=== PATIENT | male | born 2000 | race Caucasian/White ===

== ENCOUNTER 2021-09-05 22:52 | Inpatient (IN) | payer BC ==
[2021-09-06 00:44] VITALS: BMI 31.5
[2021-09-06] MEDS ORDERED: Sodium Chloride 0.9% 1,000 ML IV SCH (01:00)
[2021-09-06] MEDS ORDERED: Ondansetron PF 4 MG/2 ML Vial IVP PRN (01:49)
[2021-09-06] MEDS ORDERED: Ondansetron ODT 4 MG TAB PO PRN (01:49)
[2021-09-06] MEDS ORDERED: Morphine 4 MG/ML VIAL SLOW IVP PRN (02:05)
[2021-09-06 04:05] LABS: #Basophils 0.1 10x3/uL (0.0-0.2); #Eosinphils 0.2 10x3/uL (0.0-0.5); #Monocytes 0.5 10x3/uL (0.0-1.1); #Neutrophils 4.2 10x3/uL (1.5-8.4); %Basophils 1.5 % (0.0-2.0); %Eosinophils 2.2 % (0.0-6.0); %Lymphocytes 29.5 % (18.0-47.0); %Monocytes 6.3 % (0.0-10.0); %Neutrophils 56.9 % (40.0-75.0); Mean Corpuscular HGB CONC 31.3 g/dL (32.0-36.0); Mean Corpuscular Hemoglobin 20.2 pg (27.0-33.0); Mean Platelet Volume 11.2 fl (7.4-10.4); Platelet Count 262 10x3/uL (150-450); RBC Distribution Width 17.2 % (11.5-14.5); Red Blood Cell (RBC) Count 5.45 10x6/uL (4.32-5.72); White Blood Cell (WBC) Count 7.3 10x3/uL (3.5-10.5)
[2021-09-06 04:17] LABS: ALT (SGPT) 1010 U/L (8-55); AST (SGOT) 677 U/L (5-34); Albumin 4.2 g/dL (3.5-5.0); Alkaline Phosphatase 85 U/L (40-110); Anion Gap 12 mmol/L (10-20); BUN (Urea Nitrogen) 10 mg/dL (8.9-20.6); Bilirubin, Total 6.1 mg/dL (0.2-1.2); Calc. Creatinine Clearance 216 mL/min (70-130); Carbon Dioxide 24 mmol/L (22-29); Chloride 107 mmol/L (98-107); Globulin 2.1 g/dL (2.4-3.5); Glucose 98 mg/dL (70-105); Magnesium 2.2 mg/dL (1.6-2.6); Protein, Total 6.3 g/dL (6.0-8.3); Sodium 139 mmol/L (136-145)
[2021-09-06] MEDS: D5 LR w/20 mEq KCL 1,000 ML IV SCH ×4 (07:43→18:17)
[2021-09-06 09:32] LABS: ALT (SGPT) 1066 U/L (8-55); AST (SGOT) 622 U/L (5-34); Albumin 4.1 g/dL (3.5-5.0); Alkaline Phosphatase 89 U/L (40-110); Bilirubin, Direct 4.3 mg/dL (0.1-0.3); Bilirubin, Total 5.9 mg/dL (0.2-1.2); Protein, Total 6.4 g/dL (6.0-8.3)
[2021-09-06 10:17] LABS: SARS-CoV-2 NAA Rapid Test Not Detected (NotDetected)
[2021-09-06] MEDS ORDERED: cefOXitin 2 GM in Sodium Chloride 0.9% 100 ML IVPB SCH (15:45)
[2021-09-06] MEDS ORDERED: Enoxaparin Sodium 40 MG/0.4 ML SYRINGE SC SCH (21:00)
[2021-09-07] MEDS: D5 LR w/20 mEq KCL 1,000 ML IV SCH ×3 (02:10→21:47)
[2021-09-07 04:54] LABS: ALT (SGPT) 782 U/L (8-55); AST (SGOT) 275 U/L (5-34); Albumin 3.9 g/dL (3.5-5.0); Alkaline Phosphatase 91 U/L (40-110); Anion Gap 9 mmol/L (10-20); BUN (Urea Nitrogen) 7 mg/dL (8.9-20.6); Bilirubin, Total 1.9 mg/dL (0.2-1.2); Calc. Creatinine Clearance 222 mL/min (70-130); Carbon Dioxide 26 mmol/L (22-29); Chloride 107 mmol/L (98-107); Glucose 109 mg/dL (70-105); Potassium 4.3 mmol/L (3.5-5.1); Protein, Total 5.9 g/dL (6.0-8.3); Sodium 138 mmol/L (136-145)
[2021-09-07 04:55] LABS: Prothrombin Time 10.8 sec (9.5-12.1)
[2021-09-07 05:03] LABS: Platelet Count 218 10x3/uL (150-450)
[2021-09-07 05:05] LABS: #Basophils 0.1 10x3/uL (0.0-0.2); #Eosinphils 0.2 10x3/uL (0.0-0.5); #Monocytes 0.5 10x3/uL (0.0-1.1); #Neutrophils 3.2 10x3/uL (1.5-8.4); %Basophils 1.6 % (0.0-2.0); %Eosinophils 2.9 % (0.0-6.0); %Lymphocytes 31.2 % (18.0-47.0); %Monocytes 8.8 % (0.0-10.0); %Neutrophils 52.2 % (40.0-75.0); Hemoglobin 10.5 g/dL (13.5-17.5); Mean Corpuscular HGB CONC 31.2 g/dL (32.0-36.0); Mean Corpuscular Volume 64.3 fl (81.2-95.1); Mean Platelet Volume 10.5 fl (7.4-10.4); RBC Distribution Width 16.7 % (11.5-14.5); Red Blood Cell (RBC) Count 5.24 10x6/uL (4.32-5.72); White Blood Cell (WBC) Count 6.2 10x3/uL (3.5-10.5)
[2021-09-07 05:48] LABS: Platelet Morphology Comment Appears Adequate; RBC Morphology Normal
[2021-09-07] MEDS ORDERED: Iopamidol 30 ML ONE (06:45)
[2021-09-07] MEDS ORDERED: Bupivacaine HCl 0.5%/Epinephrine 1:200,000/PF 30 ml Vial ONE (06:48)
[2021-09-07] MEDS ORDERED: PROPOFOL 20 ML ONE (08:07)
[2021-09-07] MEDS ORDERED: Fentanyl 100 MCG/2 ML VIAL ONE ×3 (08:07→09:52)
[2021-09-07] MEDS ORDERED: ceFOXitin 1 GM VIAL ONE (08:30)
[2021-09-07] MEDS ORDERED: Glycopyrrolate 0.2 MG/ML 5 ML SYRINGE ONE (09:21)
[2021-09-07] MEDS ORDERED: hydrALAZINE 20 MG/ML VIAL SLOW IVP PRN (09:32)
[2021-09-07] MEDS ORDERED: Calcium Carbonate 500 MG ChewTAB PO PRN (09:32)
[2021-09-07] MEDS ORDERED: Ondansetron PF 4 MG/2 ML Vial IVP PRN (09:32)
[2021-09-07] MEDS ORDERED: Promethazine HCl 25 MG/ML VIAL IM PRN (09:32)
[2021-09-07] MEDS ORDERED: Dextrose 5% in Water 1,000 ML IV PRN (09:32)
[2021-09-07] MEDS ORDERED: Mag-Al 1200 mg/1200 mg/30 ML UDCUP PO PRN (09:32)
[2021-09-07] MEDS ORDERED: Dextrose 50% Abboject 50 ML SYRINGE SLOW IVP PRN (09:32)
[2021-09-07] MEDS: D5 1/2 NS w/20 mEq KCL 1,000 ML IV SCH (10:34)
[2021-09-07] MEDS: Morphine 4 MG/ML VIAL SLOW IVP PRN ×2 (10:35→21:38)
[2021-09-07] MEDS: Famotidine 20 MG TAB PO SCH (21:37)
[2021-09-08] MEDS: Famotidine/PF 20 mg/2ml Vial SLOW IVP SCH ×2 (00:03→09:13)
[2021-09-08] MEDS: D5 1/2 NS w/20 mEq KCL 1,000 ML IV SCH ×2 (00:03→01:22)
[2021-09-08] MEDS: Morphine 4 MG/ML VIAL SLOW IVP PRN (01:33)
[2021-09-08] MEDS: D5 LR w/20 mEq KCL 1,000 ML IV SCH (04:29)
[2021-09-08 04:59] LABS: #Basophils 0.1 10x3/uL (0.0-0.2); #Eosinphils 0.1 10x3/uL (0.0-0.5); #Monocytes 0.8 10x3/uL (0.0-1.1); #Neutrophils 6.6 10x3/uL (1.5-8.4); %Basophils 0.7 % (0.0-2.0); %Eosinophils 1.4 % (0.0-6.0); %Lymphocytes 25.3 % (18.0-47.0); %Monocytes 7.3 % (0.0-10.0); %Neutrophils 64.2 % (40.0-75.0); Hemoglobin 10.5 g/dL (13.5-17.5); Mean Corpuscular HGB CONC 31.4 g/dL (32.0-36.0); Mean Corpuscular Hemoglobin 20.2 pg (27.0-33.0); Mean Corpuscular Volume 64.4 fl (81.2-95.1); Mean Platelet Volume 11.1 fl (7.4-10.4); Platelet Count 249 10x3/uL (150-450); RBC Distribution Width 16.8 % (11.5-14.5); Red Blood Cell (RBC) Count 5.19 10x6/uL (4.32-5.72); White Blood Cell (WBC) Count 10.3 10x3/uL (3.5-10.5)
[2021-09-08 05:00] LABS: Platelet Morphology Comment Appears Adequate; RBC Morphology Normal
[2021-09-08 05:01] LABS: ALT (SGPT) 537 U/L (8-55); AST (SGOT) 108 U/L (5-34); Albumin 3.8 g/dL (3.5-5.0); Alkaline Phosphatase 79 U/L (40-110); Anion Gap 10 mmol/L (10-20); BUN (Urea Nitrogen) 7 mg/dL (8.9-20.6); Bilirubin, Total 1.1 mg/dL (0.2-1.2); Calc. Creatinine Clearance 225 mL/min (70-130); Calcium 8.6 mg/dL (7.8-10.44); Carbon Dioxide 25 mmol/L (22-29); Chloride 107 mmol/L (98-107); Glucose 120 mg/dL (70-105); Lipase 15 U/L (8-78); Potassium 3.9 mmol/L (3.5-5.1); Protein, Total 5.8 g/dL (6.0-8.3); Sodium 138 mmol/L (136-145)
[2021-09-08 08:53] VITALS: BP 116/58; TEMP 97.2
[2021-09-08] MEDS: Famotidine 20 MG TAB PO SCH (08:57)
[2021-09-08] MEDS ORDERED: Enoxaparin Sodium 40 MG/0.4 ML SYRINGE SC SCH (09:00)
== END 2021-09-08 10:59 | disposition home or self-care (01) | DRG 419 ==
LOC: INTOOBSV 23:57 → CSHTELE 23:57 → UNDOADMOB 23:57 → CSHTELE 09-06 01:49 → OBSVTOIN 09-07 09:32
PROVIDERS: ADMIT Family Medicine; ATTEND Internal Medicine
PROC: 0FT44ZZ Resection of Gallbladder, Percutaneous Endoscopic Approach (ICD-10-PCS; principal; 2021-09-07)
PROC: BF101ZZ Fluoroscopy of Bile Ducts using Low Osmolar Contrast (ICD-10-PCS; 2021-09-07)
DX: K80.42 Calculus of bile duct with acute cholecystitis without obstruction (principal); F98.8 Other specified behavioral and emotional disorders with onset usually occurring in childhood and adolescence; D56.3 Thalassemia minor; F90.9 Attention-deficit hyperactivity disorder, unspecified type; K21.9 Gastro-esophageal reflux disease without esophagitis; Z20.822 Contact with and (suspected) exposure to COVID-19; Z90.49 Acquired absence of other specified parts of digestive tract
CPT/HCPCS: 36415; 47532; 76705; 80053; 83690; 83735; 85025; 85610; 88304; 94760; 96372; C1713; G0378; J0694; J1650; J2270; J2704; J3010; J3480; J7050; Q9967; U0002